=== PATIENT | female | born 1955 | race Caucasian/White ===

== ENCOUNTER 2018-02-15 13:21 | Emergency (ER) | payer OTHER, BC ==
[~2018-02-15] VITALS: Ht 152.4 cm; Wt 61.2 kg
--- NOTE | ~2018-02-15 | EKG ---
[place] [address] [facility] [place] [address] ELECTROCARDIOGRAM REPORT Name: ABILIO LEAL Room #: DEP [facility]#: [id number] Admission: 02/15/18 Attend Phys: Discharge: 02/15/18 Date of : 53 Report #: [id number] THIS REPORT FOR: //name// [facility] ED Test Date: 2018-02-15 Test Time: 13:52:08 Pat Name: ABILIO LEAL Department: Room: Gender: F Senior Counsel [employer]: KKODJOVI : 1955 Requested By: Anders Jo Order Number: [id number] MD: Ruben Sethi Measurements Intervals [place] Rate: 67 P: -15 MT: 161 QRS: -12 QRSD: 83 T: 26 QT: 405 QTc: 428 Interpretive Statements Sinus rhythm Abnormal R-wave progression, early transition Compared to ECG 10/03/2016 16:12:17 No significant changes Electronically Signed On 02-16-2018 14:06:41 CDT by Ruben Sethi [email or web address] <ELECTRONICALLY SIGNED> By: Ruben Sethi MD, [facility] 02/16/18 1406 1352 1352 Ruben Sethi MD, [facility] /EPI
[~2018-02-15 13:21] MED LIST: AMBIEN 5 MG TABL5 M1 PO; BENTYL 20 MG TA20 M1 PO; CALCIUM ASCORB500 MG PO; GARLIC1 MG PO; HYDROCODONE-AP1 EAC6 PO; LOPERAMIDE 2 MG2 M1 PO; ONDANSETRON HCL4 M2 PO; PHENERGAN 25 MG25 M1 PO; PROTONIX40 MG PO; VITAMIN B-12100 MC1 PO; VITAMIN B-625 MG PO; VITAMIN D2400 UNIT PO; VITAMIN E100 UNIT PO
[2018-02-15 14:35] LABS: ABSOLUTE NEUTROPHILS 1.8 thou/uL (1.4-8.2); BASOPHILS 1.4 % (0.0-2.0); EOSINOPHILS 2.5 % (0.0-3.0); HEMATOCRIT 40.5 % (37.0-47.0); LYMPHOCYTES 31.6 % (24.0-44.0); MCH 30.6 pg (26.0-34.0); MCHC 34.6 g/dL (28.0-37.0); MCV 88.5 fL (80.0-100.0); MONOCYTES 7.4 % (1.0-8.0); POLYS 57.1 % (36.0-66.0); RBC 4.58 mil/uL (4.20-5.00); RDW 13.5 % (10.5-14.5); WBC 3.2 thou/uL (4.0-11.0)
[2018-02-15 14:43] LABS: ANION GAP 7 mmol/L (7-16); BUN 10 mg/dL (7-18); CHLORIDE 107 mmol/L (98-107); CO2 27 mmol/L (21-32); CREATININE 0.8 mg/dL (0.6-1.0); GLUCOSE 101 mg/dL (74-106); POTASSIUM 3.8 mmol/L (3.5-5.1); SODIUM 141 mmol/L (136-145)
[2018-02-15 14:51] LABS: ALBUMIN 3.9 g/dL (3.4-5.0); DIRECT BILIRUBIN 0.2 mg/dL (<0.1-0.3); SGOT 32 U/L (15-37); SGPT 28 U/L (30-65); TOTAL BILIRUBIN 0.8 mg/dL (<0.1-1.0); TROPONIN-I <0.06 ng/mL (<0.06)
[2018-02-15 15:15] LABS: LARGE PLATELETS OCCASIONAL; PLATELET COUNT 61 thou/uL (150-400); PLATELET ESTIMATE DECREASED
[2018-02-15] MEDS ORDERED: VALIUM5 MG PO (15:44)
== END 2018-02-15 18:59 | disposition home or self-care (01) ==
LOC: ER 13:21
PROVIDERS: Physician Assistant
DX: R07.89 Other chest pain (principal); M25.512 Pain in left shoulder; M54.9 Dorsalgia, unspecified

== ENCOUNTER → 2018-09-12 | Outpatient (CLI) | payer OTHER, BC ==
[~2018-09-12] MED LIST changes: +VALIUM5 MG PO
== END ==
LOC: ULTRA 11:01
DX: I86.8 Varicose veins of other specified sites (principal); R16.1 Splenomegaly, not elsewhere classified; Z90.49 Acquired absence of other specified parts of digestive tract

== ENCOUNTER → 2021-05-30 | Outpatient (CLI) | payer OTHER | LOC: MRI 09:09 | PROVIDERS: ATTEND Nurse Practitioner | DX: M79.601 Pain in right arm (principal) ==